=== PATIENT | female | born 1945 | race Caucasian/White ===

== ENCOUNTER 2017-08-18 11:01 | Inpatient (IN) ==
[2017-08-18 12:38] LABS: Basophils # 0.1 10*3/uL (0.0-0.2); Basophils % 0.6 % (0.0-0.8); Eosinophils # 0.2 10*3/uL (0.0-0.87); Eosinophils % 1.8 % (0.00-10.9); Hematocrit 39.1 VOL% (35.7-47.0); Hemoglobin 12.8 GM/DL (12.0-16.0); Immature Granulocytes % 0.3 %; Immature Granulocytes Absolute 0.03 #; Lymphocytes # 1.5 10*3/uL (1.4-4.0); Lymphocytes % 17.6 % (21.3-54.2); Mean Corpuscular HGB Conc 32.7 GM/DL (32-36); Mean Corpuscular Hemoglobin 28 PG (27-34); Mean Corpuscular Volume 84.3 FL (87-102); Mean Platelet Volume 9.9 FL (9.6-12.0); Monocytes # 0.8 10*3/uL (0.11-0.8); Monocytes % 8.7 % (1.7-12.7); Neutrophils # 6.2 10*3/uL (1.4-7.4); Platelet Count 316 T/CUMM (130-400); Red Blood Count 4.64 MC/CUMM (3.8-5.5); Red Cell Distribution Width 15.4 % (9.3-17.3); White Blood Count 8.8 T/CUMM (4-12)
[2017-08-18 13:05] LABS: Albumin 3.8 G/DL (3.4-5.0); Bilirubin,Total 0.5 MG/DL (0.2-1.0); Calcium 9.3 MG/DL (8.5-10.1); Osmolality,Calculated 279.4 MOS/KG (273-304); Potassium 3.9 MMOL/L (3.5-5.1); Total Protein 7.4 G/DL (6.4-8.3)
[2017-08-18 13:55] LABS: Apearance,Urine Slightly Hazy (Clear); Bilirubin,Urine Negative (Negative); Blood, Urine Negative (Negative); Glucose,Urine (UA) Negative (Negative); Ketones,Urine 20 mg/dL (Negative); Mucus,Urine Few /LPF (Occasional); Nitrite,Urine Negative (Negative); Protein,Urine Negative; RBC,Urine 3 /HPF (0-4); Squamous Epithelial Cell,Urine Occasional /HPF (0-10); Urine Color Yellow (Yellow); Urine Specific Gravity 1.026 (1.001-1.035); WBC,Urine 7 /HPF (0-6)
[2017-08-18 13:59] LABS: Barbiturates Screen,Urine Negative (Negative); Benzodiazepines Screen,Urine Positive (Negative); Cannabinoid Screen,Urine Negative (Negative); Opiate Screen,Urine Negative (Negative); Phencyclidine Screen,Urine Negative (Negative)
[2017-08-18] MEDS ORDERED: CLINDAMYCIN INJ 300 MG in SODIUM CHLORIDE 0.9% 100 ML IV STA (14:10)
[2017-08-18] MEDS ORDERED: CLINDAMYCIN 600 MG/4 ML VIAL ONE (14:15)
[2017-08-18] MEDS ORDERED: ACETAMINOPHEN 325 MG TABLET PO PRN (16:29)
[2017-08-18] MEDS ORDERED: ONDANSETRON 4 MG/2 ML VIAL IV PRN (16:29)
[2017-08-18] MEDS ORDERED: ZALEPLON 5 MG CAPSULE PO PRN (16:29)
[2017-08-18] MEDS ORDERED: LEVOFLOXACIN INJ 750 MG in PREMIX 1 EACH IV SCH (17:00)
[2017-08-18] MEDS: SODIUM CHLORIDE 0.9% 1,000 ML IV SCH (18:49)
[2017-08-18] MEDS ORDERED: NAPROXEN 250 MG TABLET PO PRN (19:39)
[2017-08-18] MEDS: LEVOFLOXACIN 750 MG TABLET PO SCH (21:17)
[2017-08-18] MEDS: LORazepam 2 MG/1 ML VIAL IV SCH (21:17)
[2017-08-18] MEDS: ZALEPLON 5 MG CAPSULE PO SCH (21:17)
[2017-08-18] MEDS: SILVER SULFADIAZINE 1% CREAM 25 GM TUBE TOP SCH (21:17)
[2017-08-18] MEDS: CEFTAROLINE 600 MG in SODIUM CHLORIDE 0.9% 50 ML IV SCH (21:18)
[2017-08-18] MEDS: TOBRAMYCIN 0.3% OPH OINT 3.5 GM TUBE LEFT EYE SCH (21:18)
[2017-08-19] MEDS ORDERED: HALOPERIDOL 5 MG/ML AMP IV ONE (01:59)
[2017-08-19] MEDS: SODIUM CHLORIDE 0.9% 1,000 ML IV SCH (05:42)
[2017-08-19 06:12] LABS: Basophils # 0.1 10*3/uL (0.0-0.2); Basophils % 0.6 % (0.0-0.8); Eosinophils # 0.6 10*3/uL (0.0-0.87); Eosinophils % 6.8 % (0.00-10.9); Hematocrit 33.4 VOL% (35.7-47.0); Hemoglobin 10.6 GM/DL (12.0-16.0); Immature Granulocytes % 0.5 %; Immature Granulocytes Absolute 0.04 #; Lymphocytes # 1.7 10*3/uL (1.4-4.0); Lymphocytes % 20.9 % (21.3-54.2); Mean Corpuscular HGB Conc 31.7 GM/DL (32-36); Mean Corpuscular Hemoglobin 28 PG (27-34); Mean Corpuscular Volume 87.2 FL (87-102); Mean Platelet Volume 10.1 FL (9.6-12.0); Monocytes % 11.9 % (1.7-12.7); Neutrophils # 4.8 10*3/uL (1.4-7.4); Neutrophils % 59.3 % (38.7-73.9); Platelet Count 257 T/CUMM (130-400); Red Blood Count 3.83 MC/CUMM (3.8-5.5); Red Cell Distribution Width 15.4 % (9.3-17.3); White Blood Count 8.1 T/CUMM (4-12)
[2017-08-19 06:53] LABS: Calcium 8.4 MG/DL (8.5-10.1); Osmolality,Calculated 281.1 MOS/KG (273-304); Potassium 3.7 MMOL/L (3.5-5.1)
[2017-08-19] MEDS: CEFTAROLINE 600 MG in SODIUM CHLORIDE 0.9% 50 ML IV SCH (10:05)
[2017-08-19] MEDS: TOBRAMYCIN 0.3% OPH OINT 3.5 GM TUBE LEFT EYE SCH ×3 (10:07→21:29)
[2017-08-19] MEDS: LORazepam 2 MG/1 ML VIAL IV SCH (10:09)
[2017-08-19] MEDS: PANTOPRAZOLE 40 MG TABLET PO SCH (10:09)
[2017-08-19] MEDS ORDERED: LORazepam 2 MG/1 ML VIAL IV PRN (11:02)
[2017-08-19] MEDS: HALOPERIDOL 5 MG TABLET PO SCH ×2 (12:43→21:29)
[2017-08-19] MEDS: DIAZEPAM 5 MG TABLET PO SCH ×2 (12:43→21:29)
[2017-08-19] MEDS: TOBRAMYCIN/DEXAMETHASONE OPH OINT 3.5 GM TUBE LEFT EYE SCH ×2 (17:06→21:29)
[2017-08-19] MEDS: SILVER SULFADIAZINE 1% CREAM 25 GM TUBE TOP SCH (19:06)
[2017-08-19] MEDS: MUPIROCIN 2% OINT 22 GM TUBE TOP SCH (19:26)
[2017-08-19] MEDS: LEVOFLOXACIN 750 MG TABLET PO SCH (21:28)
[2017-08-19] MEDS: ZALEPLON 5 MG CAPSULE PO SCH (21:29)
[2017-08-20 06:22] LABS: Basophils # 0.1 10*3/uL (0.0-0.2); Basophils % 0.7 % (0.0-0.8); Eosinophils # 0.6 10*3/uL (0.0-0.87); Eosinophils % 7.5 % (0.00-10.9); Hematocrit 37.7 VOL% (35.7-47.0); Immature Granulocytes % 0.5 %; Immature Granulocytes Absolute 0.04 #; Lymphocytes # 2.2 10*3/uL (1.4-4.0); Lymphocytes % 29.6 % (21.3-54.2); Mean Corpuscular HGB Conc 31.8 GM/DL (32-36); Mean Corpuscular Hemoglobin 28 PG (27-34); Mean Corpuscular Volume 86.3 FL (87-102); Mean Platelet Volume 10.1 FL (9.6-12.0); Monocytes # 0.7 10*3/uL (0.11-0.8); Monocytes % 9.4 % (1.7-12.7); Neutrophils # 3.9 10*3/uL (1.4-7.4); Neutrophils % 52.3 % (38.7-73.9); Platelet Count 316 T/CUMM (130-400); Red Blood Count 4.37 MC/CUMM (3.8-5.5); White Blood Count 7.4 T/CUMM (4-12)
[2017-08-20 06:52] LABS: Calcium 8.6 MG/DL (8.5-10.1); Osmolality,Calculated 279.3 MOS/KG (273-304); Potassium 4.5 MMOL/L (3.5-5.1)
[2017-08-20] MEDS: PANTOPRAZOLE 40 MG TABLET PO SCH (08:30)
[2017-08-20] MEDS: HALOPERIDOL 5 MG TABLET PO SCH (08:30)
[2017-08-20] MEDS: MUPIROCIN 2% OINT 22 GM TUBE TOP SCH (08:30)
[2017-08-20] MEDS: DIAZEPAM 5 MG TABLET PO SCH (08:31)
[2017-08-20] MEDS: TOBRAMYCIN 0.3% OPH OINT 3.5 GM TUBE LEFT EYE SCH (08:31)
[2017-08-20] MEDS: TOBRAMYCIN/DEXAMETHASONE OPH OINT 3.5 GM TUBE LEFT EYE SCH (08:31)
[2017-08-20 11:11] VITALS: BP 112/58
== END 2017-08-20 12:55 | DRG 918 ==
LOC: N.ED 11:01 → N.EDINP 14:47 → N.3E 17:54
PROVIDERS: ADMIT Internal Medicine; ATTEND Internal Medicine

== ENCOUNTER 2021-01-17 13:20 | Inpatient (IN) ==
[2021-01-17] MEDS: methylPREDNISolone SOD SUC 40 MG/1 ML VIAL IV SCH ×2 (17:29→23:00)
[2021-01-17] MEDS: cefTRIAXone 1,000 MG in SODIUM CHLORIDE 0.9% 100 ML IV SCH (17:53)
[2021-01-17] MEDS ORDERED: diphenhydrAMINE CAP 25 MG CAPSULE PO PRN (18:03)
[2021-01-17] MEDS: ALBUTEROL/IPRATROPIUM 3 ML NEB RESP TX SCH (19:34)
[2021-01-17] MEDS: GABAPENTIN 400 MG CAPSULE PO SCH (21:01)
[2021-01-17] MEDS: QUEtiapine 100 MG TABLET PO SCH (21:02)
[2021-01-17] MEDS: ZALEPLON 5 MG CAPSULE PO SCH (21:02)
[2021-01-17] MEDS: rOPINIRole 4 MG TABLET PO SCH (21:02)
[2021-01-18] MEDS: DILTIAZEM 60 MG TABLET PO SCH ×3 (01:09→20:29)
[2021-01-18 04:21] LABS: Allen Test Positive
[2021-01-18 04:23] LABS: ABG Base Excess 1.3 MMOL/L (-2.5-2.5); ABG HCO3 25.5 MMOL/L (20-26); ABG Oxygen Saturation 97.4 % (95-100); ABG PCO2 36.7 MM HG (35-48); ABG PH 7.443 (7.35-7.45); ABG PO2 89.9 MM HG (80-95)
[2021-01-18] MEDS: METHOCARBAMOL 750 MG TABLET PO PRN ×3 (04:41→16:28)
[2021-01-18] MEDS: ALBUTEROL/IPRATROPIUM 3 ML NEB RESP TX SCH ×4 (04:41→18:16)
[2021-01-18 05:06] LABS: Basophils % 0.2 % (0.0-0.8); Hematocrit 39.5 VOL% (35.7-47.0); Hemoglobin 11.9 GM/DL (12.0-16.0); Immature Granulocytes % 0.6 %; Immature Granulocytes Absolute 0.07 #; Lymphocytes % 8.9 % (21.3-54.2); Mean Corpuscular HGB Conc 30.1 GM/DL (32-36); Neutrophils % 85.3 % (38.7-73.9); Platelet Count 264 T/CUMM (130-400); Red Blood Count 4.34 MC/CUMM (3.8-5.5); Red Cell Distribution Width 14.7 % (9.3-17.3); White Blood Count 11.1 T/CUMM (4-12)
[2021-01-18 05:31] LABS: Calcium 8.8 MG/DL (8.5-10.1); Osmolality,Calculated 284.4 MOS/KG (273-304)
[2021-01-18] MEDS: SODIUM CHLORIDE 0.9% 1,000 ML IV SCH ×2 (06:33→20:28)
[2021-01-18] MEDS: HYDROmorphone 2 MG TABLET PO PRN ×3 (09:24→23:00)
[2021-01-18] MEDS: GABAPENTIN 400 MG CAPSULE PO SCH ×3 (09:25→20:28)
[2021-01-18] MEDS: methylPREDNISolone SOD SUC 40 MG/1 ML VIAL IV SCH ×3 (09:35→22:30)
[2021-01-18] MEDS: FUROSEMIDE 40 MG/4 ML VIAL IV SCH (09:39)
[2021-01-18] MEDS: cefTRIAXone 1,000 MG in SODIUM CHLORIDE 0.9% 100 ML IV SCH (15:08)
[2021-01-18] MEDS: QUEtiapine 100 MG TABLET PO SCH (20:29)
[2021-01-18] MEDS: ZALEPLON 5 MG CAPSULE PO SCH (20:29)
[2021-01-18] MEDS: rOPINIRole 4 MG TABLET PO SCH (20:50)
[2021-01-19] MEDS: ALBUTEROL/IPRATROPIUM 3 ML NEB RESP TX SCH ×4 (03:41→20:59)
[2021-01-19] MEDS: HYDROmorphone 2 MG TABLET PO PRN ×3 (08:23→21:25)
[2021-01-19] MEDS: GABAPENTIN 400 MG CAPSULE PO SCH ×3 (08:24→21:27)
[2021-01-19] MEDS: FUROSEMIDE 40 MG/4 ML VIAL IV SCH (08:24)
[2021-01-19] MEDS: methylPREDNISolone SOD SUC 40 MG/1 ML VIAL IV SCH ×3 (08:24→23:14)
[2021-01-19] MEDS: DILTIAZEM 60 MG TABLET PO SCH ×2 (08:24→21:27)
[2021-01-19] MEDS: METHOCARBAMOL 750 MG TABLET PO PRN ×2 (08:24→14:47)
[2021-01-19] MEDS: SODIUM CHLORIDE 0.9% 1,000 ML IV SCH ×2 (08:34→23:13)
[2021-01-19] MEDS ORDERED: PHENOL 1.4% THROAT SPRAY 177 ML BOTTLE PO PRN (12:46)
[2021-01-19] MEDS: cefTRIAXone 1,000 MG in SODIUM CHLORIDE 0.9% 100 ML IV SCH (14:48)
[2021-01-19] MEDS: ZALEPLON 5 MG CAPSULE PO SCH (21:25)
[2021-01-19] MEDS: QUEtiapine 100 MG TABLET PO SCH (21:27)
[2021-01-19] MEDS: rOPINIRole 4 MG TABLET PO SCH (21:27)
[2021-01-20] MEDS: ALBUTEROL/IPRATROPIUM 3 ML NEB RESP TX SCH ×4 (02:01→19:45)
[2021-01-20 05:50] LABS: Basophils % 0.2 % (0.0-0.8); Hematocrit 36.5 VOL% (35.7-47.0); Hemoglobin 11.2 GM/DL (12.0-16.0); Immature Granulocytes % 1.6 %; Immature Granulocytes Absolute 0.18 #; Lymphocytes # 0.7 10*3/uL (1.4-4.0); Mean Corpuscular HGB Conc 30.7 GM/DL (32-36); Mean Corpuscular Volume 89.2 FL (87-102); Mean Platelet Volume 10.9 FL (9.6-12.0); Monocytes % 5.6 % (1.7-12.7); Neutrophils % 86.6 % (38.7-73.9); Platelet Count 259 T/CUMM (130-400); Red Blood Count 4.09 MC/CUMM (3.8-5.5); Red Cell Distribution Width 14.8 % (9.3-17.3); White Blood Count 11.3 T/CUMM (4-12)
[2021-01-20] MEDS: GABAPENTIN 400 MG CAPSULE PO SCH ×3 (08:41→21:35)
[2021-01-20] MEDS: FUROSEMIDE 40 MG/4 ML VIAL IV SCH (08:42)
[2021-01-20] MEDS: DILTIAZEM 60 MG TABLET PO SCH ×2 (08:42→21:36)
[2021-01-20] MEDS: methylPREDNISolone SOD SUC 40 MG/1 ML VIAL IV SCH ×3 (08:43→23:46)
[2021-01-20] MEDS: METHOCARBAMOL 750 MG TABLET PO PRN ×3 (08:47→21:37)
[2021-01-20] MEDS: HYDROmorphone 2 MG TABLET PO PRN ×3 (08:48→21:36)
[2021-01-20] MEDS: SODIUM CHLORIDE 0.9% 1,000 ML IV SCH (12:09)
[2021-01-20] MEDS: cefTRIAXone 1,000 MG in SODIUM CHLORIDE 0.9% 100 ML IV SCH (16:10)
[2021-01-20] MEDS: QUEtiapine 100 MG TABLET PO SCH (21:35)
[2021-01-20] MEDS: rOPINIRole 4 MG TABLET PO SCH (21:35)
[2021-01-20] MEDS: ZALEPLON 5 MG CAPSULE PO SCH (21:36)
[2021-01-21] MEDS: ALBUTEROL/IPRATROPIUM 3 ML NEB RESP TX SCH ×4 (00:33→20:40)
[2021-01-21] MEDS: SODIUM CHLORIDE 0.9% 1,000 ML IV SCH ×2 (01:46→14:35)
[2021-01-21] MEDS: GABAPENTIN 400 MG CAPSULE PO SCH ×3 (08:51→20:54)
[2021-01-21] MEDS: DILTIAZEM 60 MG TABLET PO SCH ×2 (08:51→20:56)
[2021-01-21] MEDS: METHOCARBAMOL 750 MG TABLET PO PRN ×2 (08:51→16:05)
[2021-01-21] MEDS: FUROSEMIDE 40 MG/4 ML VIAL IV SCH (08:52)
[2021-01-21] MEDS: HYDROmorphone 2 MG TABLET PO PRN ×3 (08:52→21:04)
[2021-01-21] MEDS: methylPREDNISolone SOD SUC 40 MG/1 ML VIAL IV SCH ×3 (08:52→22:31)
[2021-01-21] MEDS: cefTRIAXone 1,000 MG in SODIUM CHLORIDE 0.9% 100 ML IV SCH (16:06)
[2021-01-21] MEDS: QUEtiapine 100 MG TABLET PO SCH (20:52)
[2021-01-21] MEDS: rOPINIRole 4 MG TABLET PO SCH (20:53)
[2021-01-21] MEDS: ZALEPLON 5 MG CAPSULE PO SCH (20:55)
[2021-01-22] MEDS: ALBUTEROL/IPRATROPIUM 3 ML NEB RESP TX SCH ×4 (01:48→19:46)
[2021-01-22] MEDS: SODIUM CHLORIDE 0.9% 1,000 ML IV SCH (04:43)
[2021-01-22] MEDS: GABAPENTIN 400 MG CAPSULE PO SCH ×3 (10:02→21:55)
[2021-01-22] MEDS: DILTIAZEM 60 MG TABLET PO SCH ×2 (10:03→21:55)
[2021-01-22] MEDS: HYDROmorphone 2 MG TABLET PO PRN ×2 (10:07→18:19)
[2021-01-22] MEDS: methylPREDNISolone SOD SUC 40 MG/1 ML VIAL IV SCH ×3 (10:07→21:54)
[2021-01-22] MEDS: METHOCARBAMOL 750 MG TABLET PO PRN ×2 (10:07→18:19)
[2021-01-22] MEDS: FUROSEMIDE 40 MG/4 ML VIAL IV SCH (10:10)
[2021-01-22] MEDS: cefTRIAXone 1,000 MG in SODIUM CHLORIDE 0.9% 100 ML IV SCH (15:41)
[2021-01-22] MEDS: ZALEPLON 5 MG CAPSULE PO SCH (21:55)
[2021-01-22] MEDS: rOPINIRole 4 MG TABLET PO SCH (21:56)
[2021-01-22] MEDS: QUEtiapine 100 MG TABLET PO SCH (21:56)
[2021-01-23] MEDS: ALBUTEROL/IPRATROPIUM 3 ML NEB RESP TX SCH ×3 (00:05→13:55)
[2021-01-23] MEDS: METHOCARBAMOL 750 MG TABLET PO PRN ×2 (01:49→09:24)
[2021-01-23] MEDS: HYDROmorphone 2 MG TABLET PO PRN ×2 (01:49→09:24)
[2021-01-23] MEDS: DILTIAZEM 60 MG TABLET PO SCH (09:23)
[2021-01-23] MEDS: GABAPENTIN 400 MG CAPSULE PO SCH ×2 (09:24→16:59)
[2021-01-23] MEDS: methylPREDNISolone SOD SUC 40 MG/1 ML VIAL IV SCH (09:27)
[2021-01-23] MEDS: FUROSEMIDE 40 MG/4 ML VIAL IV SCH (09:31)
[2021-01-23 12:07] VITALS: BP 125/60
[2021-01-23] MEDS: cefTRIAXone 1,000 MG in SODIUM CHLORIDE 0.9% 100 ML IV SCH (16:40)
== END 2021-01-23 18:22 | disposition swing bed (61) | DRG 195 ==
LOC: N.ADMINP 14:25 → INTOOBSV 15:16
PROVIDERS: ADMIT Internal Medicine; ATTEND Internal Medicine